=== PATIENT | female | born 1945 | race Hispanic/Latino ===

== ENCOUNTER 2019-01-10 11:57 | Emergency (ER) | payer MEDICARE, BC ==
[2019-01-10 12:09] VITALS: BMI 26.5
--- NOTE | 2019-01-10 14:18 | ED PDOC ---
Arrival/HPI - General Chief Complaint: ENT Problem Time Seen by Provider: 01/10/19 12:04 Historian: Patient - History of Present Illness Narrative History of Present Illness (Text): 01/10/19 12:04 73 F with hx of cerebral aneurysm who presents to the emergency department complaining of intermittent left nostril epistaxis since 3 days. Patient's last episode was in the middle of last night. Patient notes secondary complaint of left hip pain worsened with ambulation. Patient's daughter states she fell on her hip in September and was not evaluated. Patient is willing to undergo initial X-Rays. Patient denies fevers, chills, headache, dizziness, chest pain, shortness of breath, dyspnea on exertion, cough, abdominal pain, nausea, vomiting, diarrhea, back pain, neck pain, or any other complaint. Time/Duration: < week (3 days) Symptom Onset: Sudden Symptom Course: Intermittent Activities at Onset: Light Context: Home Past Medical History - Provider Review Nursing Documentation Reviewed: Yes - Infectious Disease Hx of Infectious Diseases: None - Tetanus Immunization Tetanus Immunization: Unknown - Neurological HX Cerebrovascular Accident: Yes Hx Dementia: Yes Other/Comment: Aneurysm - Hematological/Oncological Hx Blood Transfusions: No Hx Blood Transfusion Reaction: No - Musculoskeletal/Rheumatological Hx Musculoskeletal Disorders: Yes - Psychiatric Hx Depression: Yes Hx Emotional Abuse: No Hx Physical Abuse: No Hx Schizophrenia: Yes Hx Substance Use: No - Surgical History Hx Tonsillectomy: Yes Other/Comment: aneurysm clips. intestinal surgery - Anesthesia Hx Anesthesia Reactions: Yes (TROUBLE WAKING UP, COUGHING UPON WAKING UP) - Suicidal Assessment Feels Threatened In Home Enviroment: No Family/Social History - Physician Review Nursing Documentation Reviewed: Yes Family/Social History: No Known Family HX Smoking Status: Current Some Days Smoker Hx Alcohol Use: Yes (SOCIAL) Hx Substance Use: No Allergies/Home Meds Allergies/Adverse Reactions: Allergies Penicillins Allergy (Verified 01/10/19 12:10) RASH Sulfa (Sulfonamide Antibiotics) Allergy (Verified 01/10/19 12:10) SWELLING MYACINS Allergy (Severe, Uncoded 10/16/12 09:30) RASH myacin drugs Allergy (Uncoded 01/10/19 12:10) SWELLING seafood Allergy (Uncoded 01/10/19 12:10) SWELLING Home Medications: Home Meds Medication Instructions Recorded Confirmed Donepezil [Aricept] 1 tab PO DAILY 01/10/19 01/10/19 QUEtiapine [SEROquel] 1 tab PO BID 01/10/19 01/10/19 Risperidone [Risperdal] 1 tab PO DAILY 01/10/19 01/10/19 buPROPion XL [Wellbutrin XL] 1 tab PO DAILY 01/10/19 01/10/19 clonazePAM [Klonopin] 1 tab PO BID 01/10/19 01/10/19 Review of Systems - Physician Review All systems were reviewed & negative as marked: Yes - Review of Systems Constitutional: absent: Fevers, Night Sweats ENT: Epistaxis (left nostril) Respiratory: absent: SOB, Cough Cardiovascular: absent: Chest Pain, MARIE Gastrointestinal: absent: Abdominal Pain, Diarrhea, Nausea, Vomiting Musculoskeletal: Arthralgias (left hip pain). absent: Back Pain, Neck Pain Neurological: absent: Headache, Dizziness Physical Exam - Physical Exam Narrative Physical Exam (Text): 01/10/19 12:04 Gen: VS reviewed, alert, well developed, well nourished, nontoxic, mild distress. ENT: mild excoriation in left nostril turbinates. normal pharynx. Eye: EOMI, PERRL. Neck: no JVD, supple, no adenopathy. CV: regular rate, regular rhythm, no rubs, no murmur, no gallops, S1, S2, pulses equal and strong. Pulm: no distress, clear to auscultation, no wheeze, no rhonchi, breath sounds equal, no rales. Abd: soft, nontender, no guarding, no rebound, no rigidity, normal bowel sounds. Lower Ext: Left hip tenderness. no edema. Skin: good color, no rash, no cyanosis. Psych: responds appropriately to questions, normal affect. Neuro: oriented x 3, CN2-12 intact grossly, motor intact, sensation intact. Vital Signs Reviewed: Yes Vital Signs Temp Pulse Resp BP Pulse Ox 01/10/19 12:18 98.5 F 86 18 136/84 97 Temperature: Afebrile Blood Pressure: Normal Pulse: Regular Respiratory Rate: Normal Appearance: Positive for: Well-Appearing, Non-Toxic, Comfortable Pain Distress: None Mental Status: Positive for: Alert and Oriented X 3 Medical Decision Making ED Course and Treatment: 01/10/19 14:31 PROCEDURE: EPISTAXIS MANAGEMENT Performed by the Jeffery Camp Consent: Informed consent was obtained after discussion of the risks, benefits, and alternatives to the procedure. Timeout: A timeout to verify the correct patient, procedure, and site was performed immediately prior to the procedure. Indication: Nasal bleeding control Location: left naris Cautery: silver nitrate Packin.5 rapid rhino Post-procedure: Good hemostasis. The patient was observed following procedure and no repeat episode of bleeding was noted. Patient tolerated the procedure well with no immediate complications. 01/10/19 15:18 patient was discharged and then noticed blood trickling around the packing as she got to the car patient returned, a gauze trap was placed by myself, bleeding controlled. patient was instructed on how to care for at home. 01/10/19 17:21 01/10/19 17:22 late note: the daughter had several family obligations to tend to and could not stay longer for xrays. patient was able to ambulate with steady gait in the ED and it was their intention to follow up with orthopedic surgeon. - RAD Interpretation Radiology Orders: 01/10/19 13:17 HIP MIN 2V W/ PELVIS LT [RAD] Stat - Scribe Statement The provider has reviewed the documentation as recorded by the Scribe Real Centeno All medical record entries made by the Scribe were at my direction and personally dictated by me. I have reviewed the chart and agree that the record accurately reflects my personal performance of the history, physical exam, medical decision making, and the department course for this patient. I have also personally directed, reviewed, and agree with the discharge instructions and disposition. Disposition/Present on Arrival - Present on Arrival Any Indicators Present on Arrival: No History of DVT/PE: No History of Uncontrolled Diabetes: No Urinary Catheter: No History of Decub. Ulcer: No History Surgical Site Infection Following: None - Disposition Have Diagnosis and Disposition been Completed?: Yes Diagnosis: Nosebleed Disposition: HOME/ ROUTINE Disposition Time: 17:23 (not actual) Patient Plan: Discharge Condition: STABLE Discharge Instructions (ExitCare): Nosebleeds Additional Instructions: have the packing removed in 2-3 days. you may come back to the ER to have the packing removed. Prescriptions: RX: Clarithromycin [Clarithromycin ER] 1,000 mg PO DAILY 3 Days tab.er.24h Referrals: Ivonne Clark MD [Primary Care Provider] - Follow up with primary Jones Samson MD [Medical Doctor] - Follow up with primary Chad Dior MD [Medical Doctor] - Follow up with primary Forms: [employer] (Czech)
[2019-01-10 15:32] VITALS: BP 142/79; PULSE 97; RESP 16; TEMP 97.7; O2SAT 99
== END 2019-01-10 14:45 | disposition home or self-care (01) ==
LOC: ED 11:57
DX: R04.0 Epistaxis (principal); F20.9 Schizophrenia, unspecified